=== PATIENT | female | born 1970 | race Two or more races ===

== ENCOUNTER 2022-01-17 07:15 | Inpatient (IN) | payer OTHER ==
[~2022-01-17] VITALS: Ht 157.5 cm; Wt 49.9 kg
[2022-01-17] MEDS ORDERED: ZOCOR40 MG PO (08:44)
[2022-01-17] MEDS ORDERED: TOPROL XL50 M1 PO (08:44)
== END 2022-01-27 18:33 | disposition home or self-care (01) | DRG 734 ==
LOC: SURH 01-24 07:00 → O/R 01-24 07:18 → SURH 01-24 19:47
PROVIDERS: ADMIT Obstetrics & Gynecology Gynecologic Oncology; ATTEND Obstetrics & Gynecology Gynecologic Oncology
PROC: 0UT90ZZ Resection of Uterus, Open Approach (ICD-10-PCS; 2022-01-24)
PROC: 0UT20ZZ Resection of Bilateral Ovaries, Open Approach (ICD-10-PCS; 2022-01-24)
PROC: 0UT70ZZ Resection of Bilateral Fallopian Tubes, Open Approach (ICD-10-PCS; 2022-01-24)
PROC: 0DTU0ZZ Resection of Omentum, Open Approach (ICD-10-PCS; 2022-01-24)
PROC: 0DTJ0ZZ Resection of Appendix, Open Approach (ICD-10-PCS; 2022-01-24)
PROC: 3E1M38Z Irrigation of Peritoneal Cavity using Irrigating Substance, Percutaneous Approach (ICD-10-PCS; 2022-01-24)
PROC: 07TC0ZZ Resection of Pelvis Lymphatic, Open Approach (ICD-10-PCS; principal; 2022-01-24 07:00)
PROC: 30233N1 Transfusion of Nonautologous Red Blood Cells into Peripheral Vein, Percutaneous Approach (ICD-10-PCS; 2022-01-27)
DX: D27.0 Benign neoplasm of right ovary (principal); D62 Acute posthemorrhagic anemia; Z20.822 Contact with and (suspected) exposure to COVID-19